=== PATIENT | female | born 1985 | race African-American/Black ===

== ENCOUNTER 2022-08-08 22:57 | Emergency (ER) | payer OTHER ==
[~2022-08-08] VITALS: Ht 182.9 cm; Wt 107.7 kg
[2022-08-08 23:15] VITALS: BP 134/90
--- NOTE | 2022-08-08 23:25 | NUR ---
SEEN AND EXAMINED BY ELICEO WITH ORDERS AND CARRIED OUT
[2022-08-09 00:25] LABS: BASOPHILS % (AUTO) 0.6 % (0.0-2.0); EOSINOPHILS # (AUTO) 0.1 K/uL (0-0.4); EOSINOPHILS % (AUTO) 2.1 % (0.0-4.0); HEMATOCRIT 35.7 % (36-48); HEMOGLOBIN 11.7 g/dL (12.0-16.0); LYMPHOCYTES # (AUTO) 2.3 K/uL (2.5-16.5); MEAN CORPUSCULAR HEMOGLOBIN 27 pg (27-31); MEAN CORPUSCULAR HGB CONC 33 g/dL (33-37); MONOCYTES # (AUTO) 0.5 K/uL (0.8-1.0); MONOCYTES % (AUTO) 9.2 % (1.7-9.3); NEUTROPHILS # (AUTO) 2.6 K/uL (1.8-7.7); NEUTROPHILS % (AUTO) 46.1 % (42.2-75.2); PLATELET COUNT (AUTO) 261 K/uL (140-450); RED BLOOD CELL COUNT(AUTO) 4.35 MIL/uL (4.20-5.40); RED CELL DISTRIBUTION WIDTH 13.9 % (11.6-13.7); WHITE BLOOD COUNT (AUTO) 5.5 K/uL (4.8-10.8)
[2022-08-09 00:45] LABS: ANION GAP 9.8 (8-16); CARBON DIOXIDE 28.8 mmol/L (21-32); CREATININE 0.9 mg/dL (0.6-1.3); POTASSIUM 3.6 mmol/L (3.5-5.1)
[2022-08-09 01:45] VITALS: BP 118/81
--- NOTE | 2022-08-09 01:45 | NUR ---
Patient discharged with v/s stable. Written and verbal after care instructions given and explained. Patient verbalized understanding. Ambulatory with steady gait. All questions addressed prior to discharge. Advised to follow up with PMD.
== END 2022-08-09 01:45 | disposition home or self-care (01) ==
LOC: MED 22:57
DX: R07.89 Other chest pain (principal)
CPT/HCPCS: 36415; 71045; 80048; 84484; 85025; 93005; 99285

== ENCOUNTER 2023-12-18 19:52 | Emergency (ER) | payer BC, OTHER ==
[~2023-12-18] VITALS: Ht 182.9 cm; Wt 107.5 kg
[2023-12-18 20:00] VITALS: BP 135/82; PULSE 90; RESP 19; TEMP 97.3; O2SAT 100
[2023-12-18] MEDS ORDERED: MEDR10TA PO (21:04)
[2023-12-18] MEDS ORDERED: IBUP-2213 PO (21:04)
[2023-12-18 21:15] VITALS: BP 130/75; PULSE 90; RESP 19; TEMP 97.3; O2SAT 100
== END 2023-12-18 21:15 | disposition home or self-care (01) ==
LOC: MED 19:52
DX: N93.8 Other specified abnormal uterine and vaginal bleeding (principal); Z98.890 Other specified postprocedural states; Z91.018 Allergy to other foods
CPT/HCPCS: 81002; 81025; 99284